=== PATIENT | male | born 1975 | race Caucasian/White ===

== ENCOUNTER → 2020-07-24 | Outpatient (CLI) | payer BC, OTHER ==
[2020-07-24 10:22] LABS: HEMOGLOBIN 16.1 gm/dl (14.0-17.5); RED BLOOD COUNT 5.55 M/UL (4.20-5.50)
[2020-07-24 10:44] LABS: BUN/CREATININE RATIO 20 (0-10)
[2020-07-25 08:14] LABS: CREATININE, URINE 59.1 mg/dL (Not Estab.); VITAMIN D, 25-HYDROXY 43.5 ng/mL (30.0-100.0)
== END ==
LOC: LAB 09:11
PROVIDERS: Nurse Practitioner Family
DX: E11.65 Type 2 diabetes mellitus with hyperglycemia (principal); K21.9 Gastro-esophageal reflux disease without esophagitis; I10 Essential (primary) hypertension; R31.9 Hematuria, unspecified; N20.0 Calculus of kidney; G62.9 Polyneuropathy, unspecified; E55.9 Vitamin D deficiency, unspecified; E78.5 Hyperlipidemia, unspecified; N40.1 Benign prostatic hyperplasia with lower urinary tract symptoms; R53.83 Other fatigue; Z85.47 Personal history of malignant neoplasm of testis
CPT/HCPCS: 36415; 80053; 80061; 82043; 82105; 82570; 82607; 83036; 84153; 84439; 84443; 85025

== ENCOUNTER → 2021-02-19 | Outpatient (CLI) | payer BC ==
[2021-02-19 12:13] LABS: HEMOGLOBIN 16.7 gm/dl (14.0-17.5); RED BLOOD COUNT 5.64 M/UL (4.20-5.50); WHITE BLOOD COUNT 11.2 K/UL (4.5-11.0)
[2021-02-19 12:41] LABS: BUN/CREATININE RATIO 21 (0-10)
[2021-02-20 07:10] LABS: CREATININE, URINE 68.2 mg/dL (Not Estab.)
[2021-02-20 10:13] LABS: VITAMIN D, 25-HYDROXY 37.2 ng/mL (30.0-100.0)
== END ==
LOC: LAB 10:59
PROVIDERS: Nurse Practitioner Family
DX: Z00.00 Encounter for general adult medical examination without abnormal findings (principal); E11.65 Type 2 diabetes mellitus with hyperglycemia; I12.9 Hypertensive chronic kidney disease with stage 1 through stage 4 chronic kidney disease, or unspecified chronic kidney disease; E11.22 Type 2 diabetes mellitus with diabetic chronic kidney disease; N18.30 Chronic kidney disease, stage 3 unspecified; E78.5 Hyperlipidemia, unspecified; E55.9 Vitamin D deficiency, unspecified; R31.9 Hematuria, unspecified; R53.83 Other fatigue; Z85.47 Personal history of malignant neoplasm of testis
CPT/HCPCS: 36415; 80053; 80061; 81001; 82043; 82105; 82570; 82607; 83036; 84439; 84443; 85025

== ENCOUNTER → 2021-11-22 | Outpatient (CLI) | payer BC ==
[2021-11-22 12:49] LABS: HEMOGLOBIN 14.9 gm/dl (14.0-17.5); RED BLOOD COUNT 5.07 M/UL (4.20-5.50); WHITE BLOOD COUNT 10.5 K/UL (4.5-11.0)
[2021-11-22 13:20] LABS: BUN/CREATININE RATIO 18 (0-10)
[2021-11-23 10:14] LABS: CREATININE, URINE 115.4 mg/dL (Not Estab.)
== END ==
LOC: LAB 11:54
PROVIDERS: Nurse Practitioner Family
DX: E11.22 Type 2 diabetes mellitus with diabetic chronic kidney disease (principal); N18.30 Chronic kidney disease, stage 3 unspecified; Z85.47 Personal history of malignant neoplasm of testis; E78.5 Hyperlipidemia, unspecified; R53.83 Other fatigue; E55.9 Vitamin D deficiency, unspecified
CPT/HCPCS: 36415; 80053; 80061; 82043; 82570; 82607; 83036; 84153; 84439; 84443; 85025; 87086